=== PATIENT | male | born 1960 | race African-American/Black ===

== ENCOUNTER 2022-06-20 14:19 | Emergency (ER) | payer OTHER ==
[~2022-06-20] VITALS: Ht 182.9 cm; Wt 90.0 kg
[2022-06-20 15:55] LABS: HEMATOCRIT. 39.4 % (42.0-52.0); HEMOGLOBIN. 12.6 g/dL (14.0-18.0); MEAN CORPUSCULAR HEMOGLOBIN 26.7 pg (28.0-32.0); MEAN CORPUSCULAR VOLUME 83.5 fL (80.0-94.0); MEAN PLATELET VOLUME 9.5 fl (7.4-10.4); PLATELET 227 x1000/uL (130-400); RED BLOOD CELL COUNT 4.72 mill/uL (4.7-6.1); RED CELL DISTRIBUTION WIDTH 19.3 % (11.6-14.6)
[2022-06-20 16:03] LABS: CHLORIDE 111 mEq/L (98-107)
[2022-06-20 17:00] LABS: PLATELET ESTIMATE NORMAL
[2022-06-20 18:43] VITALS: BP 160/124
== END 2022-06-20 18:51 | disposition short-term general hospital (02) ==
LOC: ER 14:19 → CANBEDREQ 06-21 19:08
DX: I21.4 Non-ST elevation (NSTEMI) myocardial infarction (principal); J44.1 Chronic obstructive pulmonary disease with (acute) exacerbation; I11.0 Hypertensive heart disease with heart failure; I50.9 Heart failure, unspecified; J44.9 Chronic obstructive pulmonary disease, unspecified; I48.91 Unspecified atrial fibrillation; Z20.822 Contact with and (suspected) exposure to COVID-19; Z79.01 Long term (current) use of anticoagulants; Z99.81 Dependence on supplemental oxygen
CPT/HCPCS: 36415; 71045; 80053; 83605; 83880; 84484; 85025; 87426; 93005; 94660; 99285; C9803